=== PATIENT | male | born 2000 | race Caucasian/White ===

== ENCOUNTER 2024-02-16 10:12 | Emergency (ER) | payer BC, SELFPAY ==
[2024-02-16 10:26] VITALS: BP 142/74; PULSE 66; RESP 16; TEMP 36.7; O2SAT 100
--- NOTE | 2024-02-16 10:34 | ED.BACK ---
HPI - Back Pain/Injury General Chief Complaint: Back Pain/Injury Stated Complaint: lower Back Pain Time Seen by Provider: 02/16/24 10:34 Source: patient Mode of arrival: ambulatory Limitations: no limitations History of Present Illness HPI Narrative: 23 yo M presents with c/o low back pain for 2 days. 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 Bent down to pick something up and felt pulling in back. Has some mild back that day. Went to work yesterday and worked through the pain. Today pain worse. Left work early. Taking ibuprofen to treat pain. Ambulatory with steady gait. No radiation of pain to LEs. No weakness/numbness or loss of bowel or bladder. All systems reviewed and negative except as noted above. Related Data Allergies Allergy/AdvReac Type Severity Reaction Status Date / Time No Known Allergies Allergy Verified 02/16/24 10:41 Review of Systems Review of Systems: CONSTITUTIONAL: Denies fever, chills, or sweats. EYES: Denies visual changes, redness, or discharge. ENT: Denies rhinorrhea, congestion, sore throat, or otalgia. CARDIOVASCULAR: Denies chest pain, palpitations, or edema. RESPIRATORY: Denies cough or dyspnea. GASTROINTESTINAL: Denies abdominal pain, nausea, vomiting, or diarrhea. GENITOURINARY: Denies dysuria or hematuria. SKIN: Denies rash or itching. MUSCULOSKELETAL: reports low back pain, muscle spasm. Denies joint pain, or myalgia. NEUROLOGIC: Denies headache, numbness, or weakness. PSYCHIATRIC: Denies anxiety or depression. All other systems reviewed are negative, except as documented in HPI. PMFSH Comments At time of signature, agree with nursing past medical, surgical, social and family history. There is no relevant family history pertinent to the presenting complaint. Exam Narrative: GENERAL: This is a well-nourished, well-developed patient, in no apparent distress. HEAD: normocephalic, atraumatic. EYES: PERRL. Sclera clear/white. Vision is grossly intact. EARS: External ears normal NOSE: External nose normal NECK: Neck supple, non-tender without lymphadenopathy, masses or thyromegaly. CARDIOVASCULAR: Regular rate and rhythm without murmurs, gallops, or rubs. RESPIRATORY: Clear to auscultation. Breath sounds equal bilaterally. No wheezes, rales, or rhonchi. SKIN: warm, Dry, intact with no suspicious lesions or rash, good texture and turgor. NEURO: awake, alert, and oriented to person, place and time. There were no obvious focal neurologic abnormalities. EXTREMITIES: No joint tenderness, effusion, or edema noted. BACK: generalized muscle tenderness/spasm to lumbar area without tenderness to midline. no neuro deficits. normal gait. Course Course Level of Care: Express Care Visit Vital Signs Vital signs: Vital Signs Temperature 36.7 C 02/16/24 10: Pulse Rate 66 02/16/24 10: Respiratory Rate 16 02/16/24 10: Blood Pressure 142/74 H 02/16/24 10: Pulse Oximetry 100 02/16/24 10:26 Oxygen Delivery Room Air 02/16/24 10: Temperature 36.7 C 02/16/24 10: Pulse Rate 66 02/16/24 10: Respiratory Rate 16 02/16/24 10: Blood Pressure 142/74 H 02/16/24 10: Pulse Oximetry 100 02/16/24 10:26 Oxygen Delivery Room Air 02/16/24 10:26 reviewed MDM - Back Pain/Injury MDM Narrative Medical decision making narrative: treat muscular back strain with prednisone, ibuprofen, methocarbamol. Recommend ice heat and stretching. Will follow up with his primary care physician if not improving. No neuro deficits at time of discharge. Patient is aware of diagnosis, understands and agrees to treatment plan. Anticipatory guidance given. Patient agrees to follow-up as directed and is aware of reasons to seek care at the emergency department. Portions of this record may have been created with voice recognition software Differential Diagnosis Differential diagnosis: Likely lumbar radiculopathy, sciatica and strain of lumbar region Discharge Plan Discharge Clinical Impression: Strain of muscle, fascia and tendon of lower back, initial encounter Patient Disposition: Home, Self-Care Condition: Stable Instructions: Muscle Strain (DC), Musculoskeletal Pain (ED), Lower Back Exercises (ED) Additional Instructions: Take medications as prescribed. Methocarbamol as a muscle relaxant may make you drowsy. Do not drive while taking this medication. Alternate between ice and heat. Do low back exercises as tolerated. Follow-up with your doctor if symptoms are not improving. Prescriptions: New ibuprofen 800 mg tablet 800 mg PO TID PRN (Reason: pain) Qty: 30 0RF prednisone 20 mg tablet See Rx Instructions .ROUTE .COMPLEX Qty: 12 0RF Rx Instructions: Take 3 tablets today, then 2 tablets daily for 3 days then 1 tablet daily for 3 days. methocarbamol 750 mg tablet 750 mg PO Q8H PRN (Reason: muscle pain/spasm) Qty: 30 0RF Follow-up/Referrals: PHYSICIAN,LEAD MANUFACTURING ENGINEER [Primary Care Provider] - Stand Alone Forms: Work/School Release IP Time of Disposition: 10:44
== END 2024-02-16 10:58 | disposition home or self-care (01) ==
PROVIDERS: Emergency Provider Nurse Practitioner Family
DX: S39.012A Strain of muscle, fascia and tendon of lower back, initial encounter (principal); X50.0XXA Overexertion from strenuous movement or load, initial encounter
CPT/HCPCS: 99213; G0463